=== PATIENT | female | born 1980 | race Caucasian/White ===

== ENCOUNTER → 2017-05-05 | Outpatient (CLI) | payer OTHER ==
[~2017-05-05] MED LIST: AMOXICILLIN 50500 MG PO; PRENATAL PLUS1 TA1 PO; TYLENOL ES500 MG PO
--- NOTE | 2017-05-05 23:56 | RADIOLOGY REPORT PS360 ---
[facility] ([facility]) Ordering Physician: Ese Monroe APRN Patient Age: 36 years: Female HISTORY: ABD PAIN, DYSURIA, HEMATURIAabdominal pain and dysuria and hematuria with generalized abdominal pain. TECHNIQUE: AP abdomen radiograph Findings:nonspecific bowel gas pattern. No bowel dilatation or obstruction. Moderate stool throughout colon becomes most pronounced at the pelvis and rectosigmoid region. Minimal small bowel gas. No organomegaly. In regards to hematuria I see no definitive renal calculi study. Stool at the pelvis partially obscures urinary bladder but no definitive calculi here. One or 2 phleboliths at the lower left pelvic basin noted. & Barely evident. CT would be more sensitive in detection of renal calculi if this is a a concern clinically IMPRESSION Nonspecific abdomen and gas pattern No bowel dilatation or obstruction. Moderate stool throughout colon most evident at the rectosigmoid .
== END ==
LOC: RAD 09:45
DX: R10.84 Generalized abdominal pain (principal); R30.0 Dysuria; R31.29 Other microscopic hematuria